=== PATIENT | female | born 1970 | race African-American/Black ===

== ENCOUNTER 2017-02-12 15:33 | Emergency (ER) | payer OTHER ==
[~2017-02-12] VITALS: Ht 162.6 cm; Wt 49.0 kg
[2017-02-12 16:23] VITALS: BP 153/84
[2017-02-12] MEDS ORDERED: KETOROLAC TROMETH 60MG/2ML VIAL IM ONE (16:30)
== END 2017-02-12 17:28 | disposition home or self-care (01) ==
LOC: ER 15:33 → EDBD 15:33 → ER 17:28
DX: S16.1XXA Strain of muscle, fascia and tendon at neck level, initial encounter (principal); S39.012A Strain of muscle, fascia and tendon of lower back, initial encounter; I10 Essential (primary) hypertension; V49.49XA Driver injured in collision with other motor vehicles in traffic accident, initial encounter; Y93.89 Activity, other specified; Y99.8 Other external cause status; Y92.410 Unspecified street and highway as the place of occurrence of the external cause
CPT/HCPCS: 72040; 72110; 96372; 99284; J1885